=== PATIENT | male | born 1980 | race African-American/Black ===

== ENCOUNTER 2020-12-22 09:19 | Emergency (ER) | payer OTHER ==
--- NOTE | 2020-12-22 10:37 | CR ---
Chest: Portable view of the chest was obtained. Comparison: No prior chest imaging is available. Heart size and mediastinum are normal. Lungs are clear with no acute parenchymal change. No acute osseous abnormality is appreciated. Impression: 1. Nothing acute is seen on portable chest x-ray. Diagnostic code #1
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
== END 2020-12-22 11:05 | disposition home or self-care (01) ==
LOC: JD.ED 09:19
DX: S02.92XA Unspecified fracture of facial bones, initial encounter for closed fracture (principal); R04.2 Hemoptysis; V69.9XXA Occupant (driver) (passenger) of heavy transport vehicle injured in unspecified traffic accident, initial encounter
CPT/HCPCS: 71045; 71045-26; 99283; 99283-25

== ENCOUNTER 2020-12-31 08:58 | Emergency (ER) | payer OTHER ==
[2020-12-31] MEDS ORDERED: HYDROmorphone 1 MG/ML Syringe IVPUSH ONE (09:37)
[2020-12-31] MEDS: Sodium Chloride 0.9% 10 ML Syringe FLUSH PRN ×2 (09:51→10:42)
[2020-12-31] MEDS ORDERED: Iopamidol 612 MG/ML 100 ML Bottle IVPUSH ONE (10:41)
--- NOTE | 2020-12-31 10:43 | CT ---
CT chest Technique: Multiple axial sections were obtained from above the lung apices inferiorly through the lung bases. Intravenous contrast was utilized. Reconstructed coronal and sagittal images were obtained. Comparison: Previous chest x-ray of 12/22/20. Findings: Thoracic aorta shows no aneurysm. Mediastinum and hilar regions show no adenopathy. No axillary adenopathy is seen. No pericardial thickening is noted. Visualized upper abdominal structures show a minimal low density lesion within the right lobe of the liver measuring 3 mm. This is too small to characterize but could represent a small cyst. Lung window settings were reviewed. Lungs show no acute parenchymal change. Bone window settings were reviewed. Fractures are seen within the lateral third, fourth, fifth and sixth ribs. No pneumothorax is seen. Impression: 1. Nondisplaced fractures within the lateral third through sixth ribs. 2. No additional abnormality is identified on CT study of the chest. Diagnostic code #3
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
== END 2020-12-31 12:01 | disposition home or self-care (01) ==
LOC: JD.ED 08:58
DX: S22.41XA Multiple fractures of ribs, right side, initial encounter for closed fracture (principal); V89.2XXA Person injured in unspecified motor-vehicle accident, traffic, initial encounter
CPT/HCPCS: 36415; 71260; 80053; 84484; 85025; 93005; 96374; 99284; J1170; Q9967; 93010

== ENCOUNTER 2021-01-24 09:46 | Emergency (ER) | payer OTHER ==
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
--- NOTE | 2021-01-24 11:31 | CT ---
CT cervical spine Technique: Multiple axial sections were obtained from above C1 inferiorly to the inferior T3 level. Reconstructed coronal and sagittal images were obtained. Findings: Vertebral body heights and disc spaces are maintained. No bony central or bony neural foraminal stenosis is seen. Visualized lung apices are clear. No fracture or subluxation is seen. Impression: 1. Nothing acute is appreciated on CT study of the cervical spine. Diagnostic code #1
--- NOTE | 2021-01-25 06:39 | CR ---
Left shoulder: 3 views of the left shoulder were obtained. Comparison: No prior shoulder study is available. Acromioclavicular and glenohumeral joints appear within normal limits. No acute fracture, dislocation or other bony abnormality is appreciated. Impression: 1. Nothing acute is seen on left shoulder study. Diagnostic code #1
== END 2021-01-24 12:05 | disposition home or self-care (01) ==
LOC: JD.ED 09:46
DX: M54.2 Cervicalgia (principal); M25.512 Pain in left shoulder; V89.2XXD Person injured in unspecified motor-vehicle accident, traffic, subsequent encounter
CPT/HCPCS: 72125; 72125-26; 73030-26-LT; 73030-LT; 99284; 99284-25